=== PATIENT | male | born 1995 | race Caucasian/White ===

== ENCOUNTER 2017-02-02 19:00 | Inpatient (IN) | payer BC ==
[~2017-02-02] VITALS: Ht 180.3 cm; Wt 74.8 kg
--- NOTE | ~2017-02-02 | CO ---
Unit #: [id number] #: [id number] Patient: JOSE ELIZALDE [id number] [facility] [address] [place] [address] [id number] MR#: [id number] NAME: JOSE ELIZALDE ROOM: 83 Age: 21 Sex: M Admission Date: 02/03/2017 : 1995 Attending Physician: Rachel Saunders M.D. Primary Care Physician: Generic Doctor Not In System Consultation Date: 02/05/2017 CONSULTATION REPORT REASON FOR CONSULTATION Abnormal labs. SUBJECTIVE The patient is a 21-year-old male, who [facility] and consultation has been for an abnormal urinalysis. The patient denies any nausea, vomiting, fever, or chills. He does endorse that he has had some unprotected sex. He does state he does have mild burning with urination. He denies any discharge. OBJECTIVE GENERAL: The patient is a 21-year-old male, who is awake and alert, in no acute distress. VITAL SIGNS: Temperature 98.5, heart rate 91, respirations 16, blood pressure 102/67. HEENT: Head is atraumatic and normocephalic. Pupils equal, round, reactive. Extraocular movements are intact. No drainage from ears or nares. NECK: Supple. Trachea midline. LUNGS: Clear to auscultation bilaterally. CARDIOVASCULAR: S1, S2. Regular rate and rhythm. ABDOMEN: Soft, nontender, nondistended. Bowel sounds are positive in all 4 quadrants. SKIN: Appears to be warm, dry, and intact. ASSESSMENT 1. Abnormal urinalysis. 2. Unprotected sex. PLAN We will check CGRNA in the morning. We will check hepatitis and HIV in the a.m. We will send urine culture and I asked nursing to call if positive. We will start him on Tessalon Perles 200 mg p.o. t.i.d. for cough. The patient has been counseled about safe sex practices. Dictated by.Zay Matamoros A.P.R.N. for Noemi Vera M.D. AM/shaw TD: 02/05/2017 19:50 JOB #: [id number] Unit #: [id number] #: [id number] Patient: ELIZALDE,JOSE CONSULTATION REPORT Page 1 of 1 X Va Matamoros APRN CONSULTATION REPORT
--- NOTE | ~2017-02-02 | PN ---
Unit #: [id number] #: [id number] Patient: JOSE ELIZALDE [id number] [facility] [address] [place] [address] [id number] I MR#: [id number] NAME: JOSE ELIZALDE ROOM: [facility] Age: 21 Sex: M Admission Date: 02/03/2017 : 1995 Attending Physician: Rachel Saunders M.D. Admitting Physician: Rachel Saunders M.D. Primary Care Physician: Nikko Doctor Not In System [facility] PROGRESS NOTES DATE 02/04/2017 DISCUSSION Mr. Elizalde is a 21-year-old white male. Chart was reviewed and case was discussed with the staff. He has been anxious, withdrawn and rather seclusive to himself. Meanwhile, he has been cooperative with treatment recommendations and has been taking medications and tolerating them fairly well with no reported side effects. MENTAL STATUS EXAMINATION Young white male who was casually dressed with fair personal hygiene and appears to be in no acute distress or discomfort. He was awake and alert on interaction with intact orientation. His was anxious, withdrawn and flat. He reports having suicidal ideation but ideation. His insight and judgement remains slightly impaired. TREATMENT PLAN 1. Will continue on his current medications and treatment protocol and will monitor his response to the medications and make further adjustments as needed. 2. Will continue to follow up. Dictated by... Rachel Saunders M.D. IAA/day TD: 02/04/2017 20:44 JOB #: [id number] Unit #: [id number] #: [id number] Patient: JOSE ELIZALDE [facility] PROGRESS NOTES Page 1 of 1 X Rachel Saunders MD PROGRESS NOTE
--- NOTE | ~2017-02-02 | PA ---
Unit #: [id number] #: [id number] Patient: JOSE ELIZALDE [id number] [facility] [address] [place] [address] [id number] I MR#: [id number] NAME: JOSE ELIZALDE ROOM: P183 Age: 21 Sex: M Admission Date: 02/03/2017 : 1995 Date of Assessment: 02/03/2017 Attending Physician: Rachel Saunders M.D. Admitting Physician: Rachel Saunders M.D. Primary Care Physician: Generic Doctor Not In System PSYCHIATRIC ASSESSMENT DATE OF SERVICE 02/03/2017. IDENTIFYING DATA Mr. Elizalde is a 21-year-old single white male, who is a resident of [place], [place], and was self-referred to the hospital on a voluntary basis. CHIEF COMPLAINT "I've been binge drinking and self-harming." HISTORY OF PRESENT ILLNESS Mr. Elizalde is a 21-year-old white male with history of substance abuse and mood disorder, who was self-referred to the hospital stating that he has been binge drinking and self-harming and has been drinking half of 1.75 L of vodka a couple of times a week and reports that he uses a shot of vodka 2 to 3 hours prior to coming to the hospital for assessment and reports self-harming in the form of rachel and cutting himself and reports burning himself with cigarettes and lighters because the burn feels good and he cuts himself because he loves to see blood and sees it as an art work as to see the blood dripping down his arms. He cannot tell if he is trying to kill himself or if he sees this as a relief of emotional stress; however, he was seen to be a significant danger to self and therefore, recommendation for inpatient level of care for safety and stabilization was made and the patient was transferred to us. SUBSTANCE ABUSE HISTORY The patient reports history of alcohol dependence and reports that he has been drinking half of 1.75 L of vodka every couple of days. PAST PSYCHIATRIC HISTORY The patient has had history of psychiatric treatment in the past. Review of the medical records indicate currently he is not active in any treatment program, is not seeing a psychiatrist, and is not taking any psychotropic medications. PAST MEDICAL HISTORY No acute or chronic medical illnesses. ALLERGIES No known medication allergies. CURRENT MEDICATIONS Unit #: [id number] #: [id number] Patient: JOSE ELIZALDE None. PERSONAL AND SOCIAL HISTORY A 21-year-old white male, who reports that he is single and lives at home with his mother and stepfather and his siblings and has fairly decent social support system. MENTAL STATUS EXAMINATION Young white male who was casually dressed with fair personal hygiene, appears to be in no acute distress or discomfort. He was awake and alert on interaction with intact orientation to time, place, and person. His mood was anxious and depressed with a congruent affect. His speech was slow and restricted in content. His thought processes were disorganized with some looseness of associations and suicidal ideations. His insight and judgment remain significantly impaired. DIAGNOSTIC IMPRESSION Psychiatric: Major depressive disorder, recurrent, moderate, without psychotic features; alcohol abuse, moderate. Medical: None. Stressors: Moderate psychosocial stressors. TREATMENT PLAN 1. The patient has presented with history of substance abuse and mood disorder, and has been decompensating and will need inpatient hospitalization for safety and stabilization. We will start him back on his home medications and we will adjust the medications. We will also consider him to be a candidate for antidepressant therapy. 2. Supportive therapy was provided to the patient. 3. Safe, structured, and nourishing environment will be provided. ESTIMATED LENGTH OF STAY 4 to 5 days. ABILITY TO HELP SELF Limited. WILLINGNESS TO HELP SELF The patient appears to be willing to help self. STRENGTHS 1. Communicative. 2. Cooperative. PROBLEMS 1. Chronic dysphoric symptoms. 2. Chronic chemical dependency. 3. Poor social support system. DISCHARGE CRITERIA This will be contingent upon the patient's ability to show resolution of his depression and anxiety and his ability to stay safe to himself, particularly after discharge from the hospital. Dictated by... Rachel Saundres M.D. Unit #: [id number] #: [id number] Patient: JOSE ELIZALDE VIKKI/shaw TD: 02/04/2017 07:20 JOB #: [id number] PSYCHIATRIC ASSESSMENT Page 1 of 1 X Rachel Saunders MD PSYCHIATRIC ASSESSMENT
--- NOTE | ~2017-02-02 | HP ---
Unit #: [id number] #: [id number] Patient: RIVAS ELIZALDE [id number] [place] [address] [id number] I MR#: [id number] NAME: RIVAS ELIZALDE ROOM: P183 Age: 21 Sex: M Admission Date: 02/03/2017 : 1995 Attending Physician: Rachel Saunders M.D. Admitting Physician: Rachel Saunders M.D. Primary Care Physician: Nikko Doctor Not In System HISTORY AND PHYSICAL HISTORY OF PRESENT ILLNESS Rivas is a 21 year old admitted to [facility] because of his abuse of alcohol and self-harming behavior. PAST MEDICAL HISTORY 1. Long history of alcohol abuse. 2. History of self-harming. PAST SURGICAL HISTORY Nothing reported. ALLERGIES No known drug allergies. SOCIAL HISTORY Smokes one pack per day. Drinks just shy of 2 liters of vodka over a period of 3 or 4 days. Denies illicit drug use. FAMILY HISTORY Medically noncontributory. REVIEW OF SYSTEMS CONSTITUTIONAL: No fever or chills. HEENT: Denies any sore throat, ear pain or runny nose. CARDIOVASCULAR: Denies chest pain, irregular heart rhythm or palpitations. CHEST: Denies shortness of breath or cough. No hemoptysis. GASTROINTESTINAL: Denies nausea, vomiting, diarrhea or chronic constipation. ENDOCRINE: Denies history of increased thirst or urination. No recent significant weight loss or gain. GENITOURINARY: Denies dysuria, frequency, or hematuria. SKIN: Denies any rashes. HEMATOLOGIC: Denies history of increased bleeding or bruising. MUSCULOSKELETAL: Denies any hot, swollen joints. No generalized muscle pain. NEUROLOGIC: Denies problems with vision or speech. No frequent, severe headaches. No numbness, tingling or weakness in any extremities. Denies loss of bladder or bowel control. CURRENT MEDICATIONS 1. Claritin 10 mg q. day. 2. Triple Antibiotic ointment b.i.d. 3. Desyrel p.r.n. Unit #: [id number] #: [id number] Patient: RIVAS ELIZALDE 4. Milk of Magnesia p.r.n. 5. Maalox p.r.n. 6. Tylenol p.r.n. 7. Nicotine patch 7 mg q. day. PHYSICAL EXAMINATION GENERAL: Alert, well nourished. No apparent distress. VITAL SIGNS: Blood pressure 126/60, heart rate 80, respirations 16, and temperature 98.6. WEIGHT: 165. HEIGHT: 5 feet 11 inches. SKIN: Warm and dry without rash. He has multiple superficial scratches especially along his left arm and multiple circular rachel along both arms. There is no increased redness, swelling, heat, or pus noted. HEENT: Normocephalic. TMs not viewed. Oral and nasal passages clear. Conjunctivae clear. PERRLA. EOMs intact. NECK: Supple without lymphadenopathy or thyromegaly. HEART: Regular rate and rhythm without murmur. LUNGS: Clear. ABDOMEN: Soft, nontender. : Not done. EXTREMITIES: No evidence of cyanosis, clubbing or edema. Moves all without focal deficit. NEUROLOGICAL: Grossly within normal limits. Cranial Nerves: II: Visual zendejas are intact. III, IV AND : Extraocular movements are intact. Pupils are equal, round and reactive to light. V: Facial sensation is grossly normal. VII: Facial movements and expression are normal. VIII: Auditory acuity grossly intact. IX, X: Uvula is midline. Phonation is normal. XI: Patient shrugs shoulders and turns head normally. XII: Tongue protrudes in the midline. Sensory and Motor Function: Sensory and motor sensation is grossly normal. Motor: moves all extremities well. Coordination: Gait is normal. Deep Tendon Reflexes: Intact. IMPRESSION Psychiatric admission. RECOMMENDATIONS PSYCHIATRIC: Per psychiatrist. MEDICAL: I see no contraindication to participate in this facility's activities. MEDICAL PROGNOSIS Good. MEDICAL CONDITION Stable. Dictated by... Paula Edmond P.A.-C. for Deshawn Chisholm Unit #: [id number] #: [id number] Patient: RIVAS ELIZALDE TD: 02/04/2017 12:29 JOB #: [id number] HISTORY AND PHYSICAL Page 1 of 1 X Paula Edmond X HISTORY AND PHYSICAL
--- NOTE | ~2017-02-02 | CO ---
Unit #: [id number] #: [id number] Patient: RIVAS ELIZALDE [id number] [facility] [address] [place] [address] [id number] I MR#: [id number] NAME: RIVAS ELIZALDE ROOM: [facility] Age: 21 Sex: M Admission Date: 02/03/2017 : 1995 Attending Physician: Rachel Saunders M.D. Primary Care Physician: Generic Doctor Not In System Consultation Date: 02/04/2017 CONSULTATION REPORT SUBJECTIVE Rivas is a 21-year-old who continues to complain of nasal congestion. He had been given 80 mg IM injection Depo-Medrol and started on Claritin 10 mg a day. His nasal congestion continued. We have added Nasacort nasal spray one spray each nostril daily. Dictated by... Paula Edmond P.A.-C. for Deshawn Chisholm/shaw TD: 02/06/2017 15:48 JOB #: [id number] CONSULTATION REPORT Page 1 of 1 X Paula Edmond CONSULTATION REPORT
--- NOTE | ~2017-02-02 | PN ---
Unit #: [id number] #: [id number] Patient: JOSE ELIZALDE [id number] [facility] [address] [place] [address] [id number] I MR#: [id number] NAME: JOSE ELIZALDE ROOM: 83 Age: 21 Sex: M Admission Date: 02/03/2017 : 1995 Attending Physician: Rachel Saunders M.D. Admitting Physician: Rachel Saunders M.D. Primary Care Physician: Generic Doctor Not In System [facility] PROGRESS NOTES DATE OF SERVICE: 02/05/2017 SUBJECTIVE Mr. elizalde is a 21-year-old white male, who was seen today and chart was reviewed and case was discussed with the staff. He has been anxious, withdrawn, and rather seclusive to himself. Meanwhile, he has been cooperative with treatment recommendations and has been taking the medications and tolerating them fairly well with no reported side effects. MENTAL STATUS EXAMINATION Young white male who was casually dressed with fair personal hygiene, appears to be in no acute distress or discomfort. He was awake and alert on interaction with intact orientation. His mood was anxious with a congruent affect. His speech was slow and goal directed. He denies any suicidal or homicidal ideations. His insight and judgment slightly impaired. TREATMENT AND PLAN 1. We will continue on his current medications and treatment protocol. We will monitor his response to medications and make further adjustments as needed. 2. We will continue to follow up. Dictated by... Deshawn Chandler/shaw TD: 02/05/2017 08:03 JOB #: [id number] [facility] PROGRESS NOTES Page 1 of 1 X Rachel Saunders MD X PROGRESS NOTE
--- NOTE | ~2017-02-02 | DS ---
Unit #: [id number] #: [id number] Patient: [facility]IZALDE [id number] [facility] [address] [place] [address] [id number] I MR#: [id number] NAME: JOSE ELIZALDE ROOM: [facility] Age: 21 Sex: M Admission Date: 02/03/2017 : 1995 Discharge Date: 02/06/2017 Attending Physician: Rachel Saunders M.D. Primary Care Physician: Generic Doctor Not In System DISCHARGE SUMMARY IDENTIFYING DATA Mr. Elizalde is a 21-year-old white male with history of mood disorder, who was brought to the hospital by his family. DISCHARGE DIAGNOSES Psychiatric: Major depressive disorder, recurrent, moderate, without psychotic features. Medical: None. Stressors: Moderate psychosocial stressors. HISTORY OF PRESENT ILLNESS Please see initial psychiatric evaluation for details. PAST PSYCHIATRIC HISTORY Please see initial psychiatric evaluation for details. PAST MEDICAL HISTORY Please see initial psychiatric evaluation for details. HOSPITAL COURSE The patient was admitted to the adult psychiatric unit at [facility] and was oriented to the hospital environment. Routine p.r.n. medications were initiated, and he was started on his home medications and medications were adjusted and Celexa 20 mg as an antidepressant was initiated and he was closely monitored. He was taking the medications regularly and was tolerating them fairly well and was able to show a descent therapeutic response with improvement in depression and anxiety, and was seen to be quite, pleasant, and cooperative with treatment and recommendations, and denying any suicidal ideations, intent, or plan and as such, it was decided that he will be discharged home and will continue treatment on an outpatient basis. DISCHARGE MEDICATIONS Celexa 20 mg a day for depression. DISCHARGE CONDITION Stable. PROGNOSIS Fair. Dictated by... Rachel Saunders M.D. Unit #: [id number] #: [id number] Patient: JOSE ELIZALDE VIKKI/modl TD: 02/06/2017 12:27 JOB #: [id number] DISCHARGE SUMMARY Page 1 of 1 X Rachel Saunders MD X DISCHARGE SUMMARY
[2017-02-05 09:48] LABS: URINE APPEARANCE CLEAR; URINE BILIRUBIN NEG (NEG); URINE BLOOD NEG (NEG); URINE COLOR YELLOW; URINE GLUCOSE NEG (NEG); URINE KETONE NEG (NEG); URINE LEUKOCYTE ESTERASE TRACE (NEG); URINE NITRATE NEG (NEG); URINE PH 6.5 (5-8); URINE PROTEIN NEG (NEG); URINE SPECIFIC GRAVITY 1.023 (1.003-1.035)
[2017-02-05 09:52] LABS: URBCS1 AUWI 0-2 /[HPF] (0-2); URINE BACTERIA AUWI NEG (NEGATIVE); URINE SQUAMOUS EPITHELIAL CELL NONE SEEN /[HPF]
[2017-02-05 10:57] LABS: AMPHETAMINE NEG (NEG); BARBITURATES NEG (NEG); BENZODIAZEPINES NEG (NEG); COCAINE NEG (NEG); MARIJUANA NEG (NEG); OPIATES NEG (NEG); TRICYCLIC ANTIDEPRESSANTS NEG (NEG); U METHADONE NEG (NEG)
[2017-02-05 12:52] LABS: BASOPHIL# 0.1 X10e3 (0-0.3); EOSINOPHIL# 0.2 X10e3 (0-0.7); EOSINOPHIL% 1.5 % (0.0-7.0); HEMATOCRIT 45.3 % (38.0-50.0); HEMOGLOBIN 15.8 gm/dL (13.0-16.0); LYMPHOCYTE# 1.8 X10e3 (1.0-3.5); LYMPHOCYTE% 16.5 % (17.0-45.0); MEAN CELL VOLUME 85.5 FL (83-96); MEAN CORPUSCULAR HEMOGLOBIN 29.8 PG (28-34); MEAN CORPUSCULAR HGB CONC 34.8 g/dL (30-36); MEAN PLATELET VOLUME 8.6 FL (6.5-11.5); MONOCYTE# 0.8 X10e3 (0-1.0); MONOCYTE% 7.3 % (3.0-12.0); NEUTROPHIL% 73.7 % (40-75); PLATELET COUNT 197 X10e3 (140-420); RED CELL DISTRIBUTION WIDTH 13.5 % (11.0-15.5); WHITE BLOOD COUNT 10.8 X10e3 (4.0-10.5)
[2017-02-05 13:15] LABS: DIFF IND NO
[2017-02-05 13:18] LABS: ALBUMIN SERUM 4.3 g/dL (3.5-5.0); BILIRUBIN,TOTAL 0.7 mg/dL (0.2-2.0); BUN/CREATININE RATIO 12.22; CALCIUM SERUM 9.6 mg/dL (8.4-10.2); CREATININE SERUM 0.9 mg/dL (0.6-1.4); GLOM FILT RATE Estimated 122.5 mL/min (>60); PROTEIN TOTAL SERUM 7.7 g/dL (6.0-8.3)
[2017-02-09 13:31] LABS: CHLAMYDIA TRACH Detected (Not Detected); N GONOR Not Detected (Not Detected)
== END 2017-02-06 13:00 | disposition home or self-care (01) | DRG 885 ==
LOC: P1E 02-03 07:21 → POF 02-03 07:21 → P1E 02-03 10:20
PROVIDERS: Nurse Practitioner; Psychiatry & Neurology Psychiatry
DX: F33.1 Major depressive disorder, recurrent, moderate (principal); F10.10 Alcohol abuse, uncomplicated; F17.210 Nicotine dependence, cigarettes, uncomplicated; R82.90 Unspecified abnormal findings in urine
CPT/HCPCS: 80053; 80307; 81003; 85025; 87086; 87491; 87591; J1040